=== PATIENT | male | born 1985 | race Caucasian/White ===

== ENCOUNTER 2017-05-03 21:50 | Emergency (ER) | payer BC, OTHER ==
[2017-05-03] MEDS ORDERED: ORPHENADRINE 30 MG/ML 2 ML VIAL IM STA (22:45)
[2017-05-03] MEDS ORDERED: KETOROLAC 60 MG/2 ML VIAL IM STA (22:45)
--- NOTE | 2017-05-03 22:45 | ED ---
Back Pain HPI - General Source: patient, RN notes reviewed, old records reviewed Limitations: no limitations <Josee Chatman - Last Filed: 05/03/17 23:14> <Dante Melton - Last Filed: 05/04/17 00:03> - General Chief Complaint: Back Pain/Injury Stated Complaint: back injury Time Seen by Provider: 05/03/17 22:38 - History of Present Illness Initial Comments: 32-year-old male presents the emergency department with chief complaint of lower back pain after lifting up a coffee table today. Patient reports that he has known lumbar spinal disease. Patient reports that he is a [place] war and [facility]. Patient reports that he was out to dinner and felt like he could not put any pressure over bilateral legs. Patient reports that he can move them but whenever he stands up to put pressure his legs feel like Jell-O. Patient states that he's not been able to move more than 5 feet. Patient states that he has to bear all of his weight with his upper extremities. Patient states that he is concerned that he has messed up his back after looking at that table. (Josee Chatman) - Related Data Previous Rx's Medication Instructions Recorded Ibuprofen [Motrin] 600 mg PO Q8HR PRN #20 tab 05/03/17 Methocarbamol [Robaxin-750] 750 mg PO TID PRN #30 tablet 05/03/17 predniSONE 20 mg PO BID #8 tab 05/04/17 traMADol HCl [Ultram] 50 mg PO Q6H PRN #20 tab 05/04/17 Allergies Allergy/AdvReac Type Severity Reaction Status Date / Time No Known Allergies Allergy Verified 05/03/17 21:54 Review of Systems ROS Other: All systems not noted in ROS Statement are negative. <Josee Chatman - Last Filed: 05/03/17 23:14> ROS Other: All systems not noted in ROS Statement are negative. <Dante Melton - Last Filed: 05/04/17 00:03> ROS Statement: Those systems with pertinent positive or pertinent negative responses have been documented in the HPI. Past Medical History Additional Past Medical History / Comment(s): Chronic back History of Any Multi-Drug Resistant Organisms: None Reported Past Surgical History: No Surgical Hx Reported Past Psychological History: Anxiety Smoking Status: Former smoker Past Alcohol Use History: Occasional Past Drug Use History: None Reported <Josee Chatman - Last Filed: 05/03/17 23:14> General Exam Limitations: no limitations General appearance: alert, in no apparent distress Head exam: Present: atraumatic, normocephalic, normal inspection Eye exam: Present: normal appearance, PERRL, EOMI. Absent: scleral icterus, conjunctival injection, periorbital swelling ENT exam: Present: normal exam, mucous membranes moist Neck exam: Present: normal inspection. Absent: tenderness, meningismus, lymphadenopathy Respiratory exam: Present: normal lung sounds bilaterally. Absent: respiratory distress, wheezes, rales, rhonchi, stridor Cardiovascular Exam: Present: regular rate, normal rhythm, normal heart sounds. Absent: systolic murmur, diastolic murmur, rubs, gallop, clicks GI/Abdominal exam: Present: soft, normal bowel sounds. Absent: distended, tenderness, guarding, rebound, rigid Extremities exam: Present: normal inspection, full ROM, normal capillary refill. Absent: tenderness, pedal edema, joint swelling, calf tenderness Back exam: Present: normal inspection, full ROM, tenderness (Lumbar spinal tenderness.), muscle spasm. Absent: CVA tenderness (R), CVA tenderness (L) Neurological exam: Present: alert, oriented X3, CN II-XII intact, normal gait Psychiatric exam: Present: normal affect, normal mood Skin exam: Present: warm, dry, intact, normal color. Absent: rash <Josee Chatman - Last Filed: 05/03/17 23:14> <Dante Melton - Last Filed: 05/04/17 00:03> - General Exam Comments Initial Comments: Pleasant 32-year-old male. No distress. (Josee Chatman) Disposition <Josee Chatman - Last Filed: 05/03/17 23:14> <Dante Melton - Last Filed: 05/04/17 00:03> Clinical Impression: Back pain Disposition: HOME SELF-CARE Condition: Good Instructions: Acute Low Back Pain (ED) Prescriptions: Ibuprofen [Motrin] 600 mg PO Q8HR PRN #20 tab PRN Reason: Pain Methocarbamol [Robaxin-750] 750 mg PO TID PRN #30 tablet PRN Reason: pain predniSONE 20 mg PO BID #8 tab traMADol HCl [Ultram] 50 mg PO Q6H PRN #20 tab PRN Reason: Pain Referrals: Nonstaff,Physician [Primary Care Provider] - 1-2 days
--- NOTE | 2017-05-03 23:36 | CT ---
EXAM: CT Lumbar Spine Without Intravenous Contrast CLINICAL HISTORY: Hx. of DDD. Pt. injured back lifting a coffee table today. Pt. c/o of LBP with Left Leg pain and weakness. TECHNIQUE: Axial computed tomography images of the lumbar spine without intravenous contrast. CTDI is 37 mGy and DLP is 1337.8 mGy-cm. This CT exam was performed using one or more of the following dose reduction techniques: automated exposure control, adjustment of the mA and/or kV according to patient size, and/or use of iterative reconstruction technique. Coronal and sagittal reconstructions are performed COMPARISON: Lumbar radiographs from 11/26/15 FINDINGS: Vertebrae: Right pars defect at L5. No acute fracture. Discs/spinal canal/neural foramina: No acute findings. No spinal canal stenosis. Soft tissues: Unremarkable. Kidneys and ureters: 3 mm nonobstructing lower pole right renal stone. Appendix: Normal appendix. IMPRESSION: No acute findings.
[2017-05-03] MEDS ORDERED: HYDROcodone/APAP 5-325MG 1 EACH TAB PO STA (23:52)
[2017-05-04 00:20] VITALS: BP 130/80; PULSE 87; RESP 20; TEMP 98
== END 2017-05-04 | disposition home or self-care (01) ==
LOC: EC 21:50
DX: M54.5 Low back pain (principal); Z87.891 Personal history of nicotine dependence
CPT/HCPCS: 72131; 99284; 96372 ×2; J2360; J1885

== ENCOUNTER 2021-12-03 12:51 | Emergency (ER) | payer BC, OTHER ==
[2021-12-03 13:45] VITALS: BP 128/78; PULSE 102; RESP 20; TEMP 101.4
[2021-12-03] MEDS ORDERED: IBUPROFEN 600 MG TAB PO STA (14:03)
[2021-12-03] MEDS ORDERED: ACETAMINOPHEN TAB 500 MG TAB PO STA (14:03)
--- NOTE | 2021-12-03 14:53 | ED ---
General Adult HPI - General Chief complaint: Upper Respiratory Infection Stated complaint: Covid symptoms Time Seen by Provider: 12/03/21 14:03 Source: patient Mode of arrival: ambulatory Limitations: no limitations - History of Present Illness Initial comments: 36-year-old male with a past medical history of chronic back pain presents to the emergency room for a chief complaint of not feeling well. Patient states for the past week or so he has had symptoms of COVID-19. He states that he has had a cough and congestion. He has had fevers and headache. Patient would like a COVID-19 test.Patient has no other complaints at this time including shortness of breath, chest pain, abdominal pain, nausea or vomiting, or visual changes. - Related Data Previous Rx's Medication Instructions Recorded Ibuprofen [Motrin] 600 mg PO Q8HR PRN #20 tab 05/03/17 Methocarbamol [Robaxin-750] 750 mg PO TID PRN #30 tablet 05/03/17 predniSONE [Deltasone] 20 mg PO BID #8 tab 05/04/17 traMADol HCl [Ultram] 50 mg PO Q6H PRN #20 tab 05/04/17 Benzonatate [Tessalon Perles] 200 mg PO Q8H PRN #15 capsule 12/03/21 Allergies Allergy/AdvReac Type Severity Reaction Status Date / Time No Known Allergies Allergy Verified 12/03/21 13:45 Review of Systems ROS Statement: Those systems with pertinent positive or pertinent negative responses have been documented in the HPI. ROS Other: All systems not noted in ROS Statement are negative. Past Medical History Additional Past Medical History / Comment(s): Chronic back pain History of Any Multi-Drug Resistant Organisms: None Reported Past Surgical History: No Surgical Hx Reported Past Psychological History: Anxiety Smoking Status: Former smoker Past Alcohol Use History: Occasional Past Drug Use History: None Reported General Exam Limitations: no limitations General appearance: alert, in no apparent distress Head exam: Present: atraumatic Eye exam: Present: normal appearance, PERRL, EOMI. Absent: scleral icterus, conjunctival injection ENT exam: Present: normal exam, mucous membranes moist Neck exam: Present: normal inspection, full ROM. Absent: tenderness Respiratory exam: Present: normal lung sounds bilaterally. Absent: respiratory distress, wheezes Cardiovascular Exam: Present: regular rate, normal rhythm, normal heart sounds GI/Abdominal exam: Present: soft, normal bowel sounds. Absent: distended, tenderness Course Vital Signs 12/03/21 13:41 Temperature 101.4 F H Pulse Rate 102 H Respiratory 20 Rate Blood Pressure 128/78 O2 Sat by Pulse 98 Oximetry Medical Decision Making - Medical Decision Making vitals are stable. Patient is febrile, given Motrin and Tylenol. No respiratory distress. He is well-appearing. Patient did test positive for COVID-19. Patient can be discharged home to follow up with primary care. He should return here for any worsening symptoms. Patient does not qualify for antibody infusion. Patient does not have any medical problems aside from chronic back pain. - Lab Data Lab Results 12/03/21 Range/Units 13:48 Coronavirus (PCR) Detected A (Not Detectd) Disposition Clinical Impression: COVID-19 Disposition: HOME SELF-CARE Condition: Good Instructions (If sedation given, give patient instructions): Coronavirus Disease 2019 (COVID-19) Additional Instructions: take Motrin and Tylenol for pain or fever. Drink plenty of fluids. Take vitamin C, D, and zinc. Take [id number] medication and medication as prescribed. Return to the emergency room for any worsening symptoms. Prescriptions: Benzonatate [Tessalon Perles] 200 mg PO Q8H PRN #15 capsule PRN Reason: Cough Is patient prescribed a controlled substance at d/c from ED?: No Referrals: Nonstaff,Physician [Primary Care Provider] - 1-2 days Time of Disposition: 14:52
== END 2021-12-03 15:04 | disposition home or self-care (01) ==
LOC: EC 12:51
DX: U07.1 COVID-19 (principal); F41.9 Anxiety disorder, unspecified; Z87.891 Personal history of nicotine dependence
CPT/HCPCS: 87635; 99284